=== PATIENT | male | born 1970 | race Caucasian/White ===

== ENCOUNTER 2017-08-19 15:10 | Emergency (ER) | payer OTHER ==
[~2017-08-19] VITALS: Ht 172.7 cm; Wt 81.7 kg
[2017-08-19] MEDS ORDERED: Cyclobenzaprine5 MG PO (15:51)
[2017-08-19] MEDS ORDERED: Veetids 500500 MG PO (15:57)
== END 2017-08-19 16:05 | disposition home or self-care (01) ==
LOC: ER 15:10
DX: K08.89 Other specified disorders of teeth and supporting structures (principal)
CPT/HCPCS: 99282